=== PATIENT | female | born 1970 | race Caucasian/White ===

== ENCOUNTER 2022-03-16 10:44 | Inpatient (IN) | payer BC ==
[~2022-03-16] VITALS: Ht 162.6 cm; Wt 72.6 kg
--- NOTE | 2022-03-16 10:51 | NUR ---
PACIENTE REFIERE DOLOR ABDOMINAL Y VOMITOS DESDE NGUYỄN.NO PADECE DE NADA MARISABEL LE BLAIR MARY DIVERTICULITIS EN EL PASADO.
--- NOTE | 2022-03-16 11:09 | NUR ---
SE LE REALZIA ADMINISTRACION DE MEDICAMENTOS A PACIENTE POR ORDEN MEDICA, SE ORIENTA A PACIENTE SOBRE USO Y EFECTOS DE LOS MEDICAMENTOS A SER ADMINISTRADOS. PACIENTE SE LE REALZIA ADMINISTRACION DE TERAPIA INTRAVENOSA. PACIENTE SE LE ENTREGA CONTRASTE PARA REALIZAR CT PO.
--- NOTE | 2022-03-16 11:11 | NUR ---
PACIENTE EN ESPERA DE ENTREGAR MUESTRA DE ORINA..
--- NOTE | 2022-03-16 20:24 | NUR ---
SE COLOCA MEDICAMENTO PARA EL DOLOR Y IV FLUIDS A PTE. PTE SE ORIENTA SOBRE TUBO NGT, PTE REHUSA EL MISMO.
== END 2022-03-18 12:56 | disposition home or self-care (01) | DRG 389 ==
LOC: ER 10:44 → SEC-K 23:46 → MEDJ 03-17 09:29 → SURH 03-17 09:59
PROVIDERS: ADMIT Internal Medicine; ATTEND Internal Medicine
PROC: BW21YZZ Computerized Tomography (CT Scan) of Abdomen and Pelvis using Other Contrast (ICD-10-PCS; principal; 2022-03-16)
DX: K56.690 Other partial intestinal obstruction (principal); K57.32 Diverticulitis of large intestine without perforation or abscess without bleeding; Z20.822 Contact with and (suspected) exposure to COVID-19